=== PATIENT | female | born 1950 | race Caucasian/White ===

== ENCOUNTER 2016-12-06 09:12 | Emergency (ER) | payer OTHER ==
[~2016-12-06] VITALS: Ht 160 cm; Wt 55.6 kg
[2016-12-06 09:17] VITALS: TEMP 36.3; Ht 160 cm; Wt 55.6 kg
[2016-12-06] MEDS ORDERED: PHENAZOPYRIDINE HCL 200 MG TAB PO STA (09:37)
[2016-12-06 09:47] LABS: URINE APPEARANCE CLOUDY (CLEAR); URINE BILIRUBIN NEG (NEG); URINE COLOR YELLOW; URINE NITRITE NEG (NEG); URINE PH 5.5 (4.5-7.5); UROBILINOGEN NEG (NEG); ZZUR CULT IF INDIC CLEAN CATCH YES
[2016-12-06 09:52] LABS: MANUAL MICROSCOPIC REQUIRED? NO; REVIEW REQ? NO
[2016-12-06] MEDS ORDERED: CALC600T9 PO (09:59)
[2016-12-06] MEDS ORDERED: MULT-506 PO (09:59)
[2016-12-06] MEDS ORDERED: NITROFURANTOIN MONOHYDRATE 100 MG CAP PO STA (10:03)
--- NOTE | 2016-12-06 10:03 | EMERGENCY ROOM VISIT NOTE ---
ED Visit Note First contact with patient: 09:18 CHIEF COMPLAINT: Frequent and painful urination since . HISTORY OF PRESENT ILLNESS: This 66-year-old female presents the ER with chief complaint of dysuria and frequency started on . She states it got a little better and then got worse this morning. The patient denies any urgency. She noticed this morning there was some blood in her urine as well. The patient states that she has pressure over her bladder but denies any other abdominal pain. The patient denies any back pain. The patient denies any nausea or vomiting. REVIEW OF SYSTEMS: 6 system review was performed and was negative unless stated otherwise in history of present illness. PMH: The patient is healthy; cholecystectomy, appendectomy, kidney stones SOCIAL HISTORY: Patient lives with her . The patient denies any tobacco use but admits to occasional alcohol use. VITALS: Were reviewed. GENERAL: 66-year-old white female appears in no acute distress. MENTAL Status: Alert and oriented 3. MOUTH: Mucosa is moist NECK: Supple, no lymphadenopathy noted. No carotid bruits noted. LUNGS: Clear auscultation without wheezes rales or rhonchi. CARDIAC: Regular rate and rhythm without murmur. Pulses is full and equal throughout. BACK: No CVA tenderness noted. ABDOMEN: Positive bowel sounds all 4 quadrants. Soft, tenderness to palpation over the suprapubic region otherwise nontender to palpation without organomegaly or masses. EXTREMITIES: No cyanosis or edema noted. EMERGENCY DEPARTMENT COURSE: The patient was evaluated. The patient was given Pyridium 200 mg by mouth. Urinalysis shows pyuria and hematuria. Nitrate test is negative. The patient was informed of the findings. The patient was given Macrobid 100 mg by mouth. The patient was discharged home in stable condition. DIAGNOSIS: UTI - Cystitis DISCHARGE INSTRUCTIONS & TREATMENT: Push fluids. Take Macrobid as prescribed. Take Pyridium as directed. This will turn your urine orange to not be alarmed. Call in 36 hours for urine culture results. If symptoms persist, follow-up with your family physician. Current/Historical Medications Scheduled Calcium Carbonate-Vitamin D (Calcium + D), 1 TAB PO DAILY Multivitamin (Multivitamin), 1 TAB PO DAILY Vital Signs Date Time Temp Pulse Resp B/P Pulse Ox O2 Delivery O2 Flow Rate FiO2 12/06/16 09:17 36.3 80 16 144/85 100 Room Air Laboratory Results Test 12/06/16 09:21 Urine Color YELLOW Urine Appearance CLOUDY (CLEAR) Urine pH 5.5 (4.5-7.5) Urine Specific [place] 1.000 (1.000-1.030) Urine Protein NEG (NEG) Urine Glucose (UA) NEG (NEG) Urine Ketones NEG (NEG) Urine Occult Blood 3+ (NEG) Urine Nitrite NEG (NEG) Urine Bilirubin NEG (NEG) Urine Urobilinogen NEG (NEG) Urine Leukocyte Esterase LARGE (NEG) Urine WBC (Auto) >30 /hpf (0-5) Urine RBC (Auto) 5-10 /hpf (0-4) Urine Hyaline Casts (Auto) 1-5 /lpf (0-5) Urine Epithelial Cells (Auto) 5-10 /lpf (0-5) Urine Bacteria (Auto) 1+ (NEG) Medications Administered Medications (Trade) Dose Ordered Sig/Candace Route Start Time Stop Time Status Last Admin Dose Admin Phenazopyridine HCl (Pyridium Tab) 200 mg NOW STAT PO 12/06/16 09:37 12/06/16 09:38 DC 12/06/16 09:46 200 MG Departure Information Referrals No Doctor, Assigned (PCP) Patient Instructions My [facility]
[2016-12-06] MEDS ORDERED: NITR-5 PO (10:10)
[2016-12-06] MEDS ORDERED: PHEN-876 PO (10:10)
[2016-12-06] MEDS ORDERED: TPRSR/50 PO (10:14)
[2016-12-06] MEDS ORDERED: ALEN70TA4 PO (10:14)
[2016-12-06 10:34] VITALS: BP 133/70; PULSE 63; O2SAT 98
--- NOTE | 2016-12-08 11:14 | Pharmacy Progress Note ---
ED Pharmacist Culture FollowUp Date of Service: Dec 08, 2016. Patient was sent home with a prescription for Macrobid 100mg PO BID x 7 days, which should cover the E Coli growing from the patient's URINE culture. No action required.
== END 2016-12-06 10:34 | disposition home or self-care (01) ==
LOC: C.EDB 09:14
DX: N30.01 Acute cystitis with hematuria (principal)

== ENCOUNTER → 2017-01-18 | Outpatient (CLI) | payer OTHER ==
[~2017-01-18] MED LIST: ALEN70TA4 PO; CALC600T9 PO; MULT-506 PO; TPRSR/50 PO
--- NOTE | 2017-01-18 11:10 | DIAGNOSTIC IMAGING REPORT ---
EXAMINATION: RENAL ULTRASOUND CLINICAL HISTORY: Acute recurrent urinary tract infection COMPARISON STUDY: None FINDINGS: The right kidney measures 10.4 cm. The left kidney measures 9.7 cm. There is minor fullness of the right renal pelvis versus a parapelvic cyst. There is no hydronephrosis of the left. There is a 2.4 cm mildly irregular right renal cyst. No bladder abnormalities are visualized. Bilateral ureteral jets were visualized. IMPRESSION : 1. No solid renal masses identified 2. 2.4 cm right renal cyst 3. Minor fullness the right renal pelvis versus a parapelvic cyst Electronically signed by: Sandro Watts M.D. 01/18/2017 11:08 AM Dictated Date/Time: 01/18/2017 11:06 AM
== END | disposition home or self-care (01) ==
LOC: C.ULTR 10:27
PROVIDERS: ATTEND Family Medicine
DX: N39.0 Urinary tract infection, site not specified (principal); N28.1 Cyst of kidney, acquired